=== PATIENT | male | born 1960 | race Caucasian/White ===

== ENCOUNTER 2016-10-27 23:34 | Emergency (ER) | payer OTHER, BC ==
[2016-10-28] MEDS ORDERED: LIDOCAINE 1% INJ-PF (10 MG/ML) 30 ML SDV INJ ONE (00:54)
--- NOTE | 2016-10-28 00:56 | RADIOLOGY REPORT (SQ) ---
EXAM DESCRIPTION: FINGER RIGHT COMPLETED DATE/TIME: 10/28/2016 12:38 am REASON FOR STUDY: crush injury . Transmission fell onto finger. 3rd digit laceration on the palmar side of the finger. COMPARISON: None. NUMBER OF VIEWS: Three views. TECHNIQUE: AP view of the right hand and lateral, and oblique images acquired of the right third fin padmini. LIMITATIONS: None. FINDINGS: MINERALIZATION: Normal. BONES: There is a linear lucency at the tuft of the 3rd distal phalanx on the oblique view. SOFT TISSUES: Diffuse soft tissue swelling and subcutaneous emphysema noted at the 3rd finger. No ra diopaque foreign body. IMPRESSION: Diffuse soft tissue swelling and subcutaneous emphysema at the right 3rd finger, suggest chris of an open wound. Linear lucency at the tuft of the 3rd distal phalanx, may represent artifact v ersus nondisplaced fracture. Please correlate with point tenderness. COMMENT: SITE OF TRAUMA/COMPLAINT MARKED/STAMP COMPLETED: YES. TECHNICAL DOCUMENTATION: JOB ID: [id number] 2010 [employer]- All Rights Reserved
[2016-10-28] MEDS ORDERED: CEPHALEXIN 500 MG CAPSULE PO ONE (02:27)
--- NOTE | 2016-10-28 02:30 | ER Document Report ---
ED Wound - General Chief Complaint: Laceration Stated Complaint: RIGHT INDEX FINGER LACERATION Time Seen by Provider: 10/28/16 00:08 Notes: Patient is a 55-year-old male presents to emergency room complaining of a laceration on the palmar aspect of his left hand on his third digit. States that he was working in a car when the transmission fell and crushed his finger. Patient admits to full range of motion and sensation. Able to make a fist and fully extend his finger. Tetanus is up-to-date as of 2014. Otherwise denies any other issues TRAVEL OUTSIDE OF THE [place] IN LAST 30 DAYS: No - Related Data Allergies/Adverse Reactions: No Known Allergies Allergy (Unverified 10/27/16 23:41) Past Medical History - Social History Smoking Status: Unknown if Ever Smoked Family History: Reviewed & Not Pertinent Patient has suicidal ideation: No Patient has homicidal ideation: No Renal/ Medical History: Denies: Hx Peritoneal Dialysis Past Surgical History: Reports: Hx Appendectomy Review of Systems - Review of Systems Constitutional: No symptoms reported Musculoskeletal: See HPI Skin: See HPI -: Yes All other systems reviewed and negative Physical Exam - Vital signs Vitals: Temp Pulse Resp BP Pulse Ox 97.9 F 108 H 16 154/99 H 96 10/27/16 23:38 10/27/16 23:38 10/27/16 23:38 10/27/16 23:38 10/27/16 23:38 - General General appearance: Appears well, Alert In distress: None - Cardiovascular Pulses: Normal: Radial Normal capillary refill: Yes - Extremities Hand: Normal, Nontender, Laceration, No evidence of FB, Swelling. No: Deformity , Dislocation, Nail injury, Tendon deficit - Neurological Sensory: Normal - Skin Skin Temperature: Warm Skin Moisture: Dry Skin Color: Normal Skin Turgor: Elastic Skin irregularity: Laceration Location of irregularity: Extremities Character of irregularity: Linear Irregularity with: Other - bleeding controlled. negative: Tenderness Course - Re-evaluation Re-evalutation: 10/28/16 06:37 No evidence of fracture on evaluation, no concern for tuft fracture given correlate clinically. Laceration closed with 6 5. 0 nylon sutures. Sterile dressing applied, patient educated on follow-up in 8-10 days to have sutures removed - Vital Signs Vital signs: Temp Pulse Resp BP Pulse Ox 97.9 F 84 18 148/86 H 95 10/27/16 23:38 10/28/16 02:40 10/28/16 02:40 10/28/16 02:40 10/28/16 02:40 - Diagnostic Test Radiology reviewed: Image reviewed, Reports reviewed Procedures - Laceration/Wound Repair Finger Wound length (cm): 4 Wound's Depth, Shape: Superficial, Linear Laceration pre-procedure: Sterile PPE donned, Betadine prep applied, Sterile drapes applied Anesthetic type: 1% Lidocaine Volume Anesthetic (mLs): 5 Wound explored: Clean, No foreign body removed Irrigated w/ Saline (mLs): 50 Wound Debrided: Minimal Wound Repaired With: Sutures Suture Size/Type: 5:0, Nylon Number of Sutures: 6 Layer Closure?: No Post-procedure wound care: Sterile dressing applied Post-procedure NV exam normal: Yes Complications: No Discharge - Discharge Clinical Impression: Laceration Condition: Good Disposition: HOME, SELF-CARE Instructions: Antibiotic Ointment Protection ([facility]), Laceration Care ([facility]), Prophylactic Antibiotic ([facility]), Soap Cleansing ([facility]), Use of Zehf-Ptu-Iozcqkn Ibuprofen ([facility]) Additional Instructions: Follow-up with your primary care provider in 8-10 days that your stitches removed Prescriptions: Cephalexin Monohydrate [Keflex 500 mg Capsule] 500 mg PO QID #20 capsule Forms: Elevated Blood Pressure, Return to Work
[2016-10-28 02:41] VITALS: BP 148/86
== END 2016-10-28 02:40 | disposition home or self-care (01) ==
LOC: ER 23:34
PROC: 0HQFXZZ Repair Right Hand Skin, External Approach (ICD-10-PCS; principal; 2016-10-27)
DX: S61.210A Laceration without foreign body of right index finger without damage to nail, initial encounter (principal); W24.1XXA Contact with transmission devices, not elsewhere classified, initial encounter
CPT/HCPCS: 99283; 73140; 12002; J3490

== ENCOUNTER → 2018-07-09 | Outpatient (CLI) | payer OTHER | LOC: OD 09:38 | PROVIDERS: ATTEND Orthopaedic Surgery Sports Medicine | DX: M79.674 Pain in right toe(s) (principal) | CPT/HCPCS: 36415; 84550 ==

== ENCOUNTER 2019-03-27 11:19 | Emergency (ER) | payer OTHER ==
--- NOTE | 2019-03-27 11:36 | ER Document Report ---
ED Medical Screen (RME) - General Chief Complaint: Back Pain Stated Complaint: LOWER BACK PAIN Time Seen by Provider: 03/27/19 11:29 Primary Care Provider: JOHN ASHLEY MD [Primary Care Provider] - Follow up as needed Mode of Arrival: Wheelchair Information source: Patient Notes: This 58-year-old male with no obvious past medical history presents emergency department with right flank pain that started 4 to 6 weeks ago. Reports he tried [id number]-zar-qduylpo aids, Motrin stretching working out the gym thinking maybe had strained something. The pain continued. He reports to the point until he has trouble driving or walking without being hunched over. Denies hematuria. Denies history of kidney stones. Denies fever vomiting diarrhea. Reports he is eating drinking voiding bowel movement without any problems. Right flank tender to palpate I have greeted and performed a rapid initial assessment of this patient. A comprehensive ED assessment and evaluation of the patient, analysis of test results and completion of the medical decision making process will be conducted by additional ED providers. Dictation of this chart was performed using voice recognition software; therefore, there may be some unintended grammatical errors. TRAVEL OUTSIDE OF THE [place] IN LAST 30 DAYS: No - Related Data Allergies/Adverse Reactions: No Known Allergies Allergy (Unverified 10/27/16 23:41) Past Medical History - Social History Chew tobacco use (# tins/day): No Frequency of alcohol use: Occasional Drug Abuse: None Renal/ Medical History: Denies: Hx Peritoneal Dialysis Past Surgical History: Reports: Hx Appendectomy Physical Exam - Vital signs Vitals: Temp Pulse Resp BP Pulse Ox 98.0 F 95 16 147/91 H 96 03/27/19 11:24 03/27/19 11:24 03/27/19 11:24 03/27/19 11:24 03/27/19 11:24 Course - Vital Signs Vital signs: Temp Pulse Resp BP Pulse Ox 98.0 F 95 16 147/91 H 96 03/27/19 11:24 03/27/19 11:24 03/27/19 11:24 03/27/19 11:24 03/27/19 11:24 Doctor's Discharge - Discharge Referrals: JOHN ASHLEY MD [Primary Care Provider] - Follow up as needed
--- NOTE | 2019-03-27 12:19 | RADIOLOGY REPORT (SQ) ---
EXAM DESCRIPTION: CT ABD/PELVIS NO ORAL OR IV COMPLETED DATE/TIME: 03/27/2019 12:06 pm REASON FOR STUDY: right flank pain COMPARISON: None. TECHNIQUE: CT scan of the abdomen and pelvis performed without intravenous or oral contrast. Images reviewed with lung, soft tissue, and bone windows. Reconstructed coronal and sagittal MPR images revi ewed. All images stored on PACS. All CT scanners at this facility use dose modulation, iterative reconstruction, and/or weight based d osing when appropriate to reduce radiation dose to as low as reasonably achievable (ALARA). [facility]: Dose Right [facility]: CareDose [facility]: Dose Right [facility]: Teradose 4D [facility]: Smart [employer] RADIATION DOSE: CT Rad equipment meets quality standard of care and radiation dose reduction techniq ues were employed. CTDIvol: 18.3 mGy. DLP: 1087 mGy-cm.mGy. LIMITATIONS: None. FINDINGS: LOWER CHEST: There is a 7 mm subpleural pulmonary nodule of the dependent left lung base. NON-CONTRASTED LIVER, SPLEEN, ADRENALS: Evaluation limited by lack of IV contrast. No identified sign ificant masses. PANCREAS: No masses. No peripancreatic inflammatory changes. GALLBLADDER: No identified stones by CT criteria. No inflammatory changes to suggest cholecystitis. RIGHT KIDNEY AND URETER: No suspicious masses. Assessment limited by lack of IV contrast. No signif icant calcifications. No hydronephrosis or hydroureter. LEFT KIDNEY AND URETER: No suspicious masses. Assessment limited by lack of IV contrast. No signifi cant calcifications. No hydronephrosis or hydroureter. AORTA AND RETROPERITONEUM: No aneurysm. No retroperitoneal masses or adenopathy. BOWEL AND PERITONEAL CAVITY: No obvious masses or inflammatory changes. No free fluid. APPENDIX: Surgically absent. PELVIS, BLADDER, AND ABDOMINAL WALL:No abnormal masses. No free fluid. Bladder normal. BONES: No significant findings. OTHER: No other significant finding. IMPRESSION: 1. No acute CT findings of the abdomen or pelvis to explain right-sided flank pain. No evidence of urinary tract calculus or hydronephrosis. 2. There is a 7 mm subpleural pulmonary nodule of the dependent left lung base. Recommend initial fo llow-up CT in 6 to 12 months to ensure stability. COMMENT: Quality ID # [id number]: Final reports with documentation of one or more dose reduction techniques (e.g., Automated exposure control, adjustment of the mA and/or kV according to patient size, use of iterative reconstruction technique) TECHNICAL DOCUMENTATION: JOB ID: [id number] [employer]- All Rights Reserved Reading location - IP/workstation name: [email or web address]
[2019-03-27 12:23] LABS: ABSOLUTE BASOPHILS # (AUTO) 0.1 10^3/uL (0.0-0.2); ABSOLUTE EOSINOPHILS # (AUTO) 0.3 10^3/uL (0.0-0.6); ABSOLUTE LYMPHOCYTES (AUTO) 2.3 10^3/uL (0.5-4.7); ABSOLUTE MONOCYTES (AUTO) 1.1 10^3/uL (0.1-1.4); ABSOLUTE NEUT (AUTO) 7.8 10^3/uL (1.7-8.2); BASOPHILS % (AUTO) 0.6 % (0-2); EOSINOPHILS % (AUTO) 2.6 % (0-6); HEMOGLOBIN 14.9 g/dL (13.5-17.0); LYMPHOCYTES % (AUTO) 20.1 % (13-45); MEAN CORPUSCULAR HEMOGLOBIN 31.4 pg (27.0-33.4); MEAN CORPUSCULAR HGB CONC 34.6 g/dL (32.0-36.0); MEAN CORPUSCULAR VOLUME 91 fl (80-97); MONOCYTES % (AUTO) 9.6 % (3-13); PLATELET COUNT 213 10^3/uL (150-450); RED BLOOD COUNT 4.74 10^6/uL (4.35-5.55); RED CELL DISTRIBUTION WIDTH 12.6 % (11.5-14.0); SEGMENTED NEUTROPHILS % (AUTO) 67.1 % (42-78); TOTAL CELLS COUNTED % (AUTO) 100 %; WHITE BLOOD COUNT 11.6 10^3/uL (4.0-10.5)
[2019-03-27 12:48] LABS: ALBUMIN 4.6 g/dL (3.5-5.0); ALKALINE PHOSPHATASE 76 U/L (38-126); ANION GAP 12 (5-19); ASPARTATE AMINO TRANSFERASE 33 U/L (17-59); BILIRUBIN,DIRECT 0.2 mg/dL (0.0-0.4); BILIRUBIN,TOTAL 0.5 mg/dL (0.2-1.3); BLOOD UREA NITROGEN 16 mg/dL (7-20); CALCIUM 9.6 mg/dL (8.4-10.2); CARBON DIOXIDE 24 mmol/L (22-30); CHLORIDE 102 mmol/L (98-107); GLUCOSE 96 mg/dL (75-110); POTASSIUM 4.7 mmol/L (3.6-5.0); TOTAL PROTEIN 7.6 g/dL (6.3-8.2)
[2019-03-27 12:54] LABS: APPEARANCE,URINE CLEAR; BILIRUBIN,URINE NEGATIVE (NEGATIVE); COLOR,URINE YELLOW; GLUCOSE, URINE NEGATIVE (NEGATIVE); KETONES,URINE NEGATIVE (NEGATIVE); LEUKOCYTE ESTERASE,URINE NEGATIVE (NEGATIVE); NITRITE,URINE NEGATIVE (NEGATIVE); PROTEIN,URINE NEGATIVE (NEGATIVE); URINE SPECIFIC GRAVITY 1.009; UROBILINOGEN,URINE NEGATIVE mg/dL (<2.0)
--- NOTE | 2019-03-27 16:02 | ER Document Report ---
ED General - General Chief Complaint: Back Pain Stated Complaint: LOWER BACK PAIN Time Seen by Provider: 03/27/19 11:29 Primary Care Provider: JOHN ASHLEY MD [NO LOCAL MD] - Follow up as needed Mode of Arrival: Wheelchair TRAVEL OUTSIDE OF THE [place] IN LAST 30 DAYS: No - HPI Notes: Patient presents with what he states 4 to 6 weeks of bilateral intermittent lower lumbar back pain. No recent traumas or falls to cause this. He has not picked up anything heavy that he is aware of. It is positional nature worse with twisting his back and movement. No recent fevers chills. No history of kidney stones and no dysuria. - Related Data Allergies/Adverse Reactions: No Known Allergies Allergy (Unverified 10/27/16 23:41) Past Medical History - General Information source: Patient - Social History Smoking Status: Never Smoker Chew tobacco use (# tins/day): No Frequency of alcohol use: Occasional Drug Abuse: None Family History: Reviewed & Not Pertinent Patient has suicidal ideation: No Patient has homicidal ideation: No - Past Medical History Cardiac Medical History: Reports: Hx Hypertension Renal/ Medical History: Denies: Hx Peritoneal Dialysis Past Surgical History: Reports: Hx Appendectomy, Hx Orthopedic Surgery - R thumb, R toe Review of Systems - Review of Systems Constitutional: No symptoms reported EENT: No symptoms reported Cardiovascular: No symptoms reported Respiratory: No symptoms reported Gastrointestinal: No symptoms reported Genitourinary: No symptoms reported Male Genitourinary: No symptoms reported Musculoskeletal: See HPI Skin: No symptoms reported Hematologic/Lymphatic: No symptoms reported Neurological/Psychological: No symptoms reported Physical Exam - Vital signs Vitals: Temp Pulse Resp BP Pulse Ox 98.0 F 95 16 147/91 H 96 03/27/19 11:24 03/27/19 11:24 03/27/19 11:24 03/27/19 11:24 03/27/19 11:24 - General General appearance: Appears well, Alert - HEENT Head: Normocephalic, Atraumatic - Respiratory Respiratory status: No respiratory distress Chest status: Nontender Breath sounds: Normal Chest palpation: Normal - Cardiovascular Rhythm: Regular Heart sounds: Normal auscultation Murmur: No - Abdominal Inspection: Normal Distension: No distension Bowel sounds: Normal Tenderness: Nontender - Back Back: Other - Tense bilateral paraspinal lumbar musculature. No: Vertebra tenderness - Neurological Neuro grossly intact: Yes Cognition: Normal Orientation: AAOx4 Course - Re-evaluation Re-evalutation: 03/27/19 16:00 Well-appearing able to stand up from chair. CT shows no acute abnormalities labs are unremarkable. Discussed as this is positional in nature not midline tenderness is consistent with muscular strain. Will provide Valium for spasms and as well as a 5-day steroid pack to see if this helps with the symptoms. - Vital Signs Vital signs: Temp Pulse Resp BP Pulse Ox 98.0 F 95 16 147/91 H 96 03/27/19 11:24 03/27/19 11:24 03/27/19 11:24 03/27/19 11:24 03/27/19 11:24 - Laboratory Result Diagrams: 03/27/19 11:49 03/27/19 11:49 Laboratory results interpreted by me: 03/27/19 11:49 WBC 11.6 H Discharge - Discharge Clinical Impression: Lumbar back pain Condition: Good Disposition: HOME, SELF-CARE Instructions: Low Back Pain ([facility]), Muscle Strain ([facility]), Warm Packs ([facility]), Ice Packs ([facility]) Prescriptions: Diazepam [Valium 5 mg Tablet] 5 mg PO QHS PRN #15 tablet PRN Reason: Prednisone [Deltasone 20 mg Tablet] 2 tab PO DAILY 5 Days #10 tablet Referrals: JOHN ASHLEY MD [NO LOCAL MD] - Follow up as needed
[2019-03-27 16:41] VITALS: BP 129/91
== END 2019-03-27 16:39 | disposition home or self-care (01) ==
LOC: ER 11:19
DX: M54.5 Low back pain (principal); R25.2 Cramp and spasm; I10 Essential (primary) hypertension
CPT/HCPCS: 36415; 74176; 80053; 81001; 85025; 99284

== ENCOUNTER 2020-01-14 05:59 | Emergency (ER) | payer OTHER ==
[2020-01-14] MEDS ORDERED: MORPHINE SULFATE 10 MG/ML INJ IV ONE ×2 (06:35→08:00)
[2020-01-14] MEDS ORDERED: ONDANSETRON HCL INJ/PF 4 MG/2 ML SDV IV ONE (06:35)
--- NOTE | 2020-01-14 06:43 | ER Document Report ---
ED General - General Chief Complaint: Foot Pain Stated Complaint: RIGHT FOOT PAIN Time Seen by Provider: 01/14/20 06:24 Primary Care Provider: [facility] [Primary Care Provider] - Follow up as needed TRAVEL OUTSIDE OF THE [place] IN LAST 30 DAYS: No - HPI Notes: Chief complaint: Pain right foot and pain left upper quadrant abdomen History of present illness: 59-year-old male followed by [facility] with history of hypertension and gout presents with pain and swelling right first MTP joint not associated with any known injury over the past 2 to 3 days. Over the past week patient is also had an increasing pain left upper quadrant abdomen. The patient reports a past history of gout. He is not currently on any treatment for this. Patient also stated that an orthopedist did some sort of a "cleanout procedure" of the right first MTP joint about 5 years ago. Patient is tried a variety of flfd-isv-fjndndc medications over the last several days with minimal improvement in his pain or swelling. Presently describes this is 8/10 intensity and says it radiates back to the posterior part of the foot and is aggravated with touching the area or walking. Over the last week the patient is also developed left upper and lower quadrant abdominal pain. Area is tender to touch and is aggravated by rolling over in bed. He initially thought he might have strained a muscle. He denies fever or chills. He denies nausea, vomiting, diarrhea or constipation. Eating and drinking normally and this does not affect his discomfort. He denies any known history of diverticulosis, renal stones or peptic ulcer disease. Pain is c urrently described as 8/10 intensity. He denies dysuria or hematuria. Patient's only current prescription medication is lisinopril for hypertension. - Related Data Allergies/Adverse Reactions: No Known Allergies Allergy (Unverified 10/27/16 23:41) Home Medications: lisinopril, valium, tylenol Past Medical History - General Information source: Patient, [facility] Records - Social History Smoking Status: Never Smoker Frequency of alcohol use: Social Drug Abuse: None Lives with: Family Family History: Reviewed & Not Pertinent Patient has homicidal ideation: No - Past Medical History Cardiac Medical History: Reports: Hx Hypertension Endocrine Medical History: Denies: Hx Diabetes Mellitus Type 1, Hx Diabetes Mellitus Type 2 Renal/ Medical History: Denies: Hx Kidney Stones, Hx Peritoneal Dialysis GI Medical History: Denies: Hx Diverticulitis, Hx Pancreatitis, Hx Ulcer Musculoskeletal Medical History: Reports Hx Gout Past Surgical History: Reports: Hx Appendectomy, Hx Orthopedic Surgery - R thumb, R toe Review of Systems - Review of Systems Notes: Constitutional: Negative for fever. HENT: Negative for sore throat. Eyes: Negative for visual changes. Cardiovascular: Negative for chest pain. Respiratory: Negative for shortness of breath. Gastrointestinal: As per HPI. Genitourinary: Negative for dysuria. Musculoskeletal: As per HPI. Skin: Negative for rash. Neurological: Negative for headaches, weakness or numbness. 10 point ROS negative except as marked above and in HPI. Physical Exam - Vital signs Vitals: Temp Pulse Resp BP Pulse Ox 98.4 F 91 16 162/93 H 95 01/14/20 06:06 01/14/20 06:06 01/14/20 06:06 01/14/20 06:06 01/14/20 06:06 Interpretation: Hypertensive - Notes Notes: GENERAL: Well-developed well-nourished male approximately stated age appearing in moderate discomfort. SKIN: Good turgor no rashes. HEAD: Normocephalic atraumatic. EYES: PERRLA. EOMI. Conjunctivae and sclerae clear. EARS: CANALS AND TMS CLEAR. NOSE: CLEAR. MOUTH: Moist mucosa. Good dentition. No stridor or edema. No drooling. NECK: Supple. No masses or thyromegaly. No adenopathy. Carotids 2+ without bruits. No JVD. BACK: Symmetrical without tenderness. CHEST: Respirations unlabored. Breath sounds clear and symmetrical. HEART: Regular rhythm. No murmur gallop or rub. ABDOMEN: Mildly obese. Exquisitely tender left upper and lower quadrant. Mild voluntary guarding without masses, organomegaly or rebound. Bowel sounds normally active. No bruits. GENITALIA: Deferred. EXTREMITIES: Patient has redness, swelling, warmth and tenderness over the right first MTP joint. No calf tenderness. Cap refill less than 1.5 seconds. Dorsalis pedis and posterior tibial pulses 3+ and symmetrical. NEUROLOGICAL: GCS 15. Alert and oriented x3. Fluent speech. Cranial nerves II through XII intact. Sensorimotor and cerebellar normal. Normal tone. PSYCHIATRIC: Appropriate affect. Course - Re-evaluation Re-evalutation: 01/14/20 11:14 This man presented with what appeared to be podegra of right foot. His serum urate is normal. X-ray is unremarkable. He has a markedly elevated sed rate. I think in all likelihood this is pseudogout (CPPD). He also was noted to have significant left upper and lower quadrant abdominal pain. He has minimal elevation of his white count. Urinalysis is unremarkable. His CT shows diverticulosis without diverticulitis. He also has evidence of extensive ischemia of the omentum in the left hemicolon. I discussed case with the on-call general surgeon, Dr. Renteria, who will see the patient for consultation at this time. Patient's prior history is basically remarkable only for hypertension and he is compliant with antihypertensive medication. I checked an EKG and he is in a sinus rhythm. He has a right bundle branch block present. There is no old tracing for comparison. His platelet count and hemoglobin are normal. I have requested 01/14/20 13:30 Dr. Renteria from surgery saw the patient and found that this man had had an extensive abdominal ultrasound exam a few days ago as an outpatient and he thinks this man has trauma to the abdominal wall resulting from the pressure of the probe. He does not feel there is any surgical issue and suggests management with analgesics and anti-inflammatory medications. Patient is given David wrap and crutches for his right foot which I think is probably pseudogout. Will place him on steroids NSAIDs and supplemental trama dol. He is to follow-up with his doctor at the [facility] this week. I suggested ice and elevation. I stressed to the patient the importance of returning here if he develops a fever, vomiting, chills, worsening abdominal pain or overall worsening or new symptoms. Findings, clinical impression and plan of treatment have been discussed with patient/family. Understanding of current findings and recommen dations has been acknowledged by them and there is agreement regarding disposition and follow-up. - Vital Signs Vital signs: Temp Pulse Resp BP Pulse Ox 98.4 F 91 16 162/93 H 95 01/14/20 06:06 01/14/20 06:06 01/14/20 06:06 01/14/20 06:06 01/14/20 06:06 - Laboratory Result Diagrams: 01/14/20 06:42 01/14/20 06:42 Laboratory results interpreted by me: 01/14/20 01/14/20 01/14/20 06:42 06:42 06:42 WBC 11.2 H RBC 4.24 L Hgb 13.4 L ESR 57 H Sodium 135.3 L Glucose 120 H - EKG Interpretation by Me Additional EKG results interpreted by me: 01/14/20 11:13 Twelve-lead EKG from 1050 hrs. reviewed contemporaneously by me demonstrating normal sinus rhythm with a rate of 84 and patient has a right bundle branch block with a QRS interval of 136 ms. QRS axis is -[address]/T wave changes present. No prior tracing for comparison. Impression right bundle branch block. Indication for current study: Upper abdominal pain. Procedures - Immobilization Right Foot Time completed: 13:30 Pre-Proc Neuro Vasc Exam: Normal Immobilizer type: David wrap, Crutches Performed by: PCT Discharge - Discharge Clinical Impression: abdominal pain Pseudogout of joint of foot Qualifiers: Laterality: right Qualified Code(s): M11.271 - Other chondrocalcinosis, right ankle and foot Condition: Stable Disposition: HOME, SELF-CARE Additional Instructions: PseudogoutPseudogout Your joint pain is due to pseudogout. This is a type of arthritis. It's caused by crystals of calcium pyrophosphate in the joint. Unlike true gout, the crystals are not uric acid. An attack of pseudogout may follow a minor injury, and most often involves the knee. Rest and elevate the affected limb until the swelling and pain are better. Colchicine, indomethacin, ibuprofen, and other antiinflammatory drugs can reduce symptoms fairly quickly. Cortisone medication may be taken as pills, or may be injected directly into the joint, for severe cases. Call the doctor or return if you develop increasing pain, severe swelling, fever or chills. Return here as needed for new or worsening symptoms: Pain that is worsening or unimproved Uncontrolled vomiting High fever or shaking chills Overall worsening Follow-up with your doctor at the [facility] later this week. Prescriptions: Prednisone [Deltasone 20 mg Tablet] 2 tab PO DAILY 5 Days tablet Indomethacin [Indocin 50 Mg Capsule] 50 mg PO TID 10 Days #30 capsule Oxycodone HCl/Acetaminophen [Percocet 5-325 mg Tablet] 1 - 2 tab PO Q4H PRN #15 tablet PRN Reason: Referrals: [facility] [Primary Care Provider] - Follow up as needed
[2020-01-14 06:55] LABS: ABSOLUTE BASOPHILS # (AUTO) 0.2 10^3/uL (0.0-0.2); ABSOLUTE EOSINOPHILS # (AUTO) 0.2 10^3/uL (0.0-0.6); ABSOLUTE LYMPHOCYTES (AUTO) 1.9 10^3/uL (0.5-4.7); ABSOLUTE MONOCYTES (AUTO) 1.2 10^3/uL (0.1-1.4); ABSOLUTE NEUT (AUTO) 7.8 10^3/uL (1.7-8.2); BASOPHILS % (AUTO) 1.4 % (0-2); EOSINOPHILS % (AUTO) 1.4 % (0-6); HEMATOCRIT 38.7 % (37.9-51.0); HEMOGLOBIN 13.4 g/dL (13.5-17.0); MEAN CORPUSCULAR HEMOGLOBIN 31.6 pg (27.0-33.4); MEAN CORPUSCULAR HGB CONC 34.6 g/dL (32.0-36.0); MEAN CORPUSCULAR VOLUME 91 fl (80-97); MONOCYTES % (AUTO) 10.7 % (3-13); PLATELET COUNT 201 10^3/uL (150-450); RED BLOOD COUNT 4.24 10^6/uL (4.35-5.55); RED CELL DISTRIBUTION WIDTH 13.1 % (11.5-14.0); SEGMENTED NEUTROPHILS % (AUTO) 69.5 % (42-78); TOTAL CELLS COUNTED % (AUTO) 100 %; WHITE BLOOD COUNT 11.2 10^3/uL (4.0-10.5)
[2020-01-14 07:16] LABS: ALBUMIN 4.2 g/dL (3.5-5.0); ALKALINE PHOSPHATASE 59 U/L (38-126); ANION GAP 11 (5-19); ASPARTATE AMINO TRANSFERASE 36 U/L (17-59); BILIRUBIN,TOTAL 0.7 mg/dL (0.2-1.3); BLOOD UREA NITROGEN 16 mg/dL (7-20); CALCIUM 9.5 mg/dL (8.4-10.2); CARBON DIOXIDE 24 mmol/L (22-30); CHLORIDE 100 mmol/L (98-107); GLUCOSE 120 mg/dL (75-110); TOTAL PROTEIN 7.3 g/dL (6.3-8.2)
[2020-01-14 07:17] LABS: URIC ACID 7.2 mg/dL (3.5-8.5)
[2020-01-14] MEDS ORDERED: NORMAL SALINE 1000 ML 1,000 ML IV ONE (07:21)
--- NOTE | 2020-01-14 07:28 | RADIOLOGY REPORT (SQ) ---
EXAM: X-ray foot three or more views, right CLINICAL DATA: 59-year-old male with pain in big toe and ankle area, no known injury TECHNICAL DATA: Three x-ray views of the right foot were performed on 01/14/2020 at 6:57 AM. COMPARISONS: None FINDINGS: There is no evidence of fracture or dislocation. There is no significant arthritis or degenerative change. No focal lytic or sclerotic bone lesions are seen. There is a posterior calcaneal enthesophyte. Bone mineralization is normal. No focal soft tissue abnormalities are identified. There is no evidence of subcutaneous emphysema. No radiopaque foreign bodies are identified. IMPRESSION: No evidence of acute osseous injury involving the right foot.
--- NOTE | 2020-01-14 09:44 | RADIOLOGY REPORT (SQ) ---
EXAM DESCRIPTION: CT ABD/PELVIS WITH IV ORAL IMAGES COMPLETED DATE/TIME: 01/14/2020 9:19 am REASON FOR STUDY: LUQ pain COMPARISON: CT of the abdomen and pelvis without contrast from 03/27/2019. TECHNIQUE: CT scan of the abdomen and pelvis performed using helical scanning technique with dynamic intravenous contrast injection. No oral contrast. Images reviewed with lung, soft tissue, and bone windows. Reconstructed coronal and sagittal MPR images reviewed. Delayed images for evaluation of the urinary system also acquired. All images stored on PACS. All CT scanners at this facility use dose modulation, iterative reconstruction, and/or weight based d osing when appropriate to reduce radiation dose to as low as reasonably achievable (ALARA). [facility]: Dose Right [facility]: CareDose [facility]: Dose Right [facility]: Teradose 4D [facility]: [employer] CONTRAST TYPE AND DOSE: Contrast/concentration: Isovue 350.00 mmol/ml; Total Contrast Delivered: 100 .0 ml; Total Saline Delivered: 64.9 ml RENAL FUNCTION: GFR > 60. RADIATION DOSE: CT Rad equipment meets quality standard of care and radiation dose reduction techniq ues were employed. CTDIvol: 18.7 - 20.7 mGy. DLP: 2365 mGy-cm. LIMITATIONS: None. FINDINGS: LOWER CHEST: No acute findings. LIVER: The morphology of the liver is noncirrhotic. The portal veins are patent. There is no hepati c mass. SPLEEN: No splenomegaly or splenic mass. PANCREAS: No acute gross abnormality of the pancreas. GALLBLADDER: No abnormality that is apparent on CT. ADRENAL GLANDS: Stable 10 x 9 mm left adrenal nodule (image 34 of series 3). RIGHT KIDNEY AND URETER: No solid mass, hydronephrosis, nephrolithiasis, hydroureter or ureterolithia sis. LEFT KIDNEY AND URETER: No solid mass, hydronephrosis, nephrolithiasis, hydroureter or ureterolithias is. AORTA AND VESSELS: No aneurysm of the abdominal aorta. RETROPERITONEUM: No retroperitoneal adenopathy, hemorrhage or mass. BOWEL AND PERITONEAL CAVITY: There is an ovoid fat attenuation structure on the anti mesenteric side of the descending colon (image 61 of series 3) that has an amorphous hyperdense rim and measures up t o 4 cm in transverse diameter. There is colonic diverticulosis without diverticulitis. There is no bowel obstruction, bowel wall thickening or pericolonic/ perienteric inflammation. There is no mesen teric adenopathy or free intraperitoneal fluid. APPENDIX: Unable to identify the appendix. There is no pericecal inflammation PELVIS: The prostate gland measures 4.7 cm in transverse diameter. The urinary bladder is normal in appearance. ABDOMINAL WALL: Fat containing right inguinal hernia. BONES: Degenerative spondylosis and facet arthropathy of the lumbar spine with mild levoconvex curvat ure. OTHER: No other finding. IMPRESSION: 1. Findings as detailed above concerning for an omental infarction on the anti mesenteri c side of the descending colon (image 61 of series 3). 2. Colonic diverticulosis without diverticulitis. 3. Other secondary findings as detailed above. TECHNICAL DOCUMENTATION: JOB ID: [id number] Quality ID # [id number]: Final reports with documentation of one or more dose reduction techniques (e.g., Au tomated exposure control, adjustment of the mA and/or kV according to patient size, use of iterative reconstruction technique) 2010 [employer]- All Rights Reserved Reading location - IP/workstation name: [email or web address]
[2020-01-14] MEDS ORDERED: HYDROMORPHONE HCL INJ/PF 2 MG/ML AMPULE IV ONE (10:45)
[2020-01-14 11:31] LABS: APPEARANCE,URINE CLEAR; BILIRUBIN,URINE NEGATIVE (NEGATIVE); COLOR,URINE STRAW; GLUCOSE, URINE NEGATIVE (NEGATIVE); KETONES,URINE NEGATIVE (NEGATIVE); PROTEIN,URINE NEGATIVE (NEGATIVE); URINE SPECIFIC GRAVITY 1.026; UROBILINOGEN,URINE NEGATIVE mg/dL (<2.0)
[2020-01-14 11:42] LABS: INTERNATIONAL RATION (INR) 1.01; PROTHROMBIN TIME 13.5 SEC (11.4-15.4)
[2020-01-14 11:43] LABS: PARTIAL THROMBOPLASTIN TIME 31.7 SEC (23.5-35.8)
[2020-01-14] MEDS ORDERED: COLCHICINE 0.6 MG TABLET PO ONE (11:52)
[2020-01-14] MEDS ORDERED: PREDNISONE 20 MG TABLET PO ONE (11:52)
[2020-01-14 14:19] VITALS: BP 148/82
--- NOTE | 2020-01-14 17:49 | PDOC CONSULTATION ---
Consultation Consult Date: 01/14/20 Provider Consulted: SAMMY THRASHER Consult reason:: Abdominal pains History of Present Illness Admission Date/PCP: [facility] History of Present Illness: MASSIMO STEARNS is a 59 year old male patient had an extensive ultrasound of the abdomen about a week ago. The next day patient complained of pains along the left lower quadrant which got worse over the weekend. However the past 2 to 3 days developed pains along the right big toe first MP joint and because of this he went to the ED. A CT scan of the abdomen was done because of the pains and noted to have omental infarct about 4 cm in diameter. Patient denies any fever chills nausea vomiting or diarrhea. Past Medical History Cardiac Medical History: Reports: Hypertension Endocrine Medical History: Denies: Diabetes Mellitus Type 1, Diabetes Mellitus Type 2 GI Medical History: Denies: Diverticulitis Musculoskeltal Medical History: Reports: Gout Past Surgical History Past Surgical History: Reports: Appendectomy, Orthopedic Surgery - R thumb, R toe Social History Lives with: Family Smoking Status: Never Smoker Family History Family History: Reviewed & Not Pertinent Parental Family History Reviewed: Yes Children Family History Reviewed: No Sibling(s) Family History Reviewed.: No Medication/Allergy Home Medications: Cephalexin Monohydrate [Keflex 500 mg Capsule] 500 mg PO QID #20 capsule 10/28/16 Diazepam [Valium 5 mg Tablet] 5 mg PO QHS PRN #15 tablet 03/27/19 Prednisone [Deltasone 20 mg Tablet] 2 tab PO DAILY 5 Days #10 tablet 03/27/19 Indomethacin [Indocin 50 Mg Capsule] 50 mg PO TID 10 Days #30 capsule 01/14/20 Oxycodone HCl/Acetaminophen [Percocet 5-325 mg Tablet] 1 - 2 tab PO Q4H PRN #15 tablet 01/14/20 Prednisone [Deltasone 20 mg Tablet] 2 tab PO DAILY 5 Days tablet 01/14/20 Allergies/Adverse Reactions: No Known Allergies Allergy (Unverified 10/27/16 23:41) Review of Systems Constitutional: PRESENT: as per HPI Gastrointestinal: PRESENT: abdominal pain - Almost like a point tenderness in the left lower quadrant. No definite herniation was noted. Musculoskeletal: PRESENT: joint swelling - First right metatarsophalangeal joint area with redness and tenderness Physical Exam Vital Signs: Temp Pulse Resp BP Pulse Ox 98.4 F 89 17 148/82 H 100 01/14/20 14:18 01/14/20 14:18 01/14/20 14:18 01/14/20 14:18 01/14/20 14:18 Intake & Output 01/13/20 01/14/20 01/15/20 06:59 06:59 06:59 Intake Total 1000 Balance 1000 Weight 119.748 kg Exam: Almost point tenderness in the left lower quadrant area about 1 inch in diameter. No definite bulging noted. Results Laboratory Results: 01/14/20 06:42 01/14/20 06:42 01/14/20 01/14/20 01/14/20 06:42 06:42 06:42 WBC 11.2 H RBC 4.24 L Hgb 13.4 L Hct 38.7 MCV 91 MCH 31.6 MCHC 34.6 RDW 13.1 Plt Count 201 Seg Neutrophils % 69.5 Sodium 135.3 L Potassium 5.0 Chloride 100 Carbon Dioxide 24 Anion Gap 11 BUN 16 Creatinine 0.90 Est GFR ( Amer) > 60 Glucose 120 H Uric Acid 7.2 Calcium 9.5 Total Bilirubin 0.7 AST 36 Alkaline Phosphatase 59 Total Protein 7.3 Albumin 4.2 Lipase 69.5 Urine Color Urine Appearance Urine pH Ur Specific Jackson Urine Protein Urine Glucose (UA) Urine Ketones Urine Blood Urine RBC (Auto) 01/14/20 10:52 WBC RBC Hgb Hct MCV MCH MCHC RDW Plt Count Seg Neutrophils % Sodium Potassium Chloride Carbon Dioxide Anion Gap BUN Creatinine Est GFR ( Amer) Glucose Uric Acid Calcium Total Bilirubin AST Alkaline Phosphatase Total Protein Albumin Lipase Urine Color STRAW Urine Appearance CLEAR Urine pH 5.0 Ur Specific Jackson 1.026 Urine Protein NEGATIVE Urine Glucose (UA) NEGATIVE Urine Ketones NEGATIVE Urine Blood NEGATIVE Urine RBC (Auto) 0 Impressions: Abdomen/Pelvis CT 01/14/20 00:00 IMPRESSION: 1. Findings as detailed above concerning for an omental infarction on the anti mesenteric side of the descending colon (image 61 of series 3). 2. Colonic diverticulosis without diverticulitis. 3. Other secondary findings as detailed above. Foot X-Ray 01/14/20 06:35 IMPRESSION: No evidence of acute osseous injury involving the right foot. Assessment & Plan - Diagnosis (1) Abdominal wall pain Is this a current diagnosis for this admission?: Yes - Time Time Spent: 30 to 50 Minutes - Plan Summary Plan Summary: 59-year-old male with known hypertension had an extensive ultrasound of the abdomen done about a week ago started complaining of a left lower quadrant pains the next day after the ultrasound. The pains somewhat got worse but then developed more severe pains in the right first metatarsophalangeal joint area 2 to 3 days ago. This brought him to the hospital. Denies any fever chills nausea vomiting or diarrhea. CT scan of the abdomen was done that showed possible small area of omental infarction right at the mid transverse colon area. On examination patient is tender in the left lower quadrant area about an inch in diameter. No definite bulging was noted. Patient has an obvious swelling of the right first metatarsophalangeal joint area likely due to gouty arthritis. Impression is abdominal pains likely due to the trauma post extensive ultrasound of the abdominal wall. The incidental finding of omental infarction showed no c linical symptoms related to this. Therefore, no surgical indication is indicated for this infarction. Recommendations: I have discussed the case with the ER physician and mentioned that patient does not have any surgical abdomen at this time. Also, mentioned that the patient should come back if there is any increasing pains, fever, chills, nausea vomiting diarrhea or constipation. I also discussed this with the patient.
--- NOTE | 2020-01-14 19:37 | EKG REPORT ---
SEVERITY:- ABNORMAL ECG - SINUS RHYTHM RIGHT BUNDLE BRANCH BLOCK : Confirmed by: Luly Church 14-Jan-2020 19:36:52
== END 2020-01-14 14:19 | disposition home or self-care (01) ==
LOC: ER 05:59
DX: M11.271 Other chondrocalcinosis, right ankle and foot (principal); K55.1 Chronic vascular disorders of intestine; R10.12 Left upper quadrant pain; R10.32 Left lower quadrant pain; R10.812 Left upper quadrant abdominal tenderness; R10.814 Left lower quadrant abdominal tenderness; K57.30 Diverticulosis of large intestine without perforation or abscess without bleeding; I10 Essential (primary) hypertension; D72.829 Elevated white blood cell count, unspecified; Z79.899 Other long term (current) drug therapy; Z90.49 Acquired absence of other specified parts of digestive tract; I45.10 Unspecified right bundle-branch block
CPT/HCPCS: 93005; 96376; 99284; 96361; 96374; 96375; 36415; 83690; 84550; 85025; 85652; 85610; 85730; 80053; 81001; 73630; 74177; 93010; J2270; J1170; J7512; J2405; J7030

== ENCOUNTER → 2020-02-12 | Outpatient (CLI) | payer OTHER ==
[2020-02-12 10:08] VITALS: BP 160/97
--- NOTE | 2020-02-12 10:08 | ER RDC ASSESSMENT REPORT ---
Intake - In the Last 14 days Have you traveled outside [place]?: No Have you been in close contact with someone CONFIRMED: No Worked in Healthcare?: No - Symptoms Subjective Fever([place] feverish): No Chills: No Muscule Aches: No Runny Nose: No Sore Throat: No Cough (New or worsening chronic cough): No Shortness of breath: No Nausea or Vomiting: No Headache: No Abdominal Pain: No Diarrhea(3 or more loose stools in last 24 hours): No - Do you have any of the following Chronic lung disease: Asthma or emphysema or COPD: No Cystic Fibrosis: No Diabetes: No High Blood Pressure: Yes Cardiovascular Disease: No Chronic Kidney Disease: No Chronic Liver Disease: No Chronic blood disorder like Sickle Cell Disease: No Weak immune system due to disease or medication: No Neurologic condition that limits movement: No Developmental delay - Moderate to Severe: No Morbid Obesity (>100 pounds over ideal weight): No - Objective Temperature: 97.8 F Pulse Rate: 80 Respiratory Rate: 18 Blood Pressure: 160/97 O2 Sat by Pulse Oximetry: 96 Objective: Given above, testing performed: covid Disposition: Home; Selfcare General - General Stated Complaint: covid screen Time Seen by Provider: 02/12/20 09:45 Mode of Arrival: Ambulatory Information source: Patient - HPI Notes: Patient presents to clinic for COVID-19 testing for routine screening. Patient is asymptomatic. Denies any contact with known positive coronavirus patient. They deny any cough, shortness of breath, fever, chills, muscle aches, rhinorrhea, sore throat, nausea or vomiting, headache, abdominal pain or diarrhea. Patient has no acute medical concerns. - Related Data Allergies/Adverse Reactions: No Known Allergies Allergy (Unverified 10/27/16 23:41) Past Medical History - General Information source: Patient - Social History Smoking Status: Never Smoker Family History: Reviewed & Not Pertinent - Past Medical History Cardiac Medical History: Reports: Hx Hypertension Pulmonary Medical History: Reports: None EENT Medical History: Reports: None Neurological Medical History: Reports: None Endocrine Medical History: Reports: None. Denies: Hx Diabetes Mellitus Type 1, Hx Diabetes Mellitus Type 2 Renal/ Medical History: Reports: None. Denies: Hx Kidney Stones, Hx Peritoneal Dialysis Malignancy Medical History: Reports None GI Medical History: Reports: None. Denies: Hx Diverticulitis, Hx Pancreatitis, Hx Ulcer Musculoskeletal Medical History: Reports Hx Gout Skin Medical History: Reports None Psychiatric Medical History: Reports: None Traumatic Medical History: Reports: None Infectious Medical History: Reports: None Past Surgical History: Reports: Hx Appendectomy, Hx Orthopedic Surgery - R thumb, R toe Physical Exam - General General appearance: Appears well, Alert In distress: None Notes: PHYSICAL EXAMINATION: GENERAL: Well-appearing and in no acute distress. HEAD: Atraumatic, normocephalic. EYES: sclera anicteric, conjunctiva are normal. ENT: nares patent. Moist mucous membranes. NECK: Normal range of motion, supple without lymphadenopathy. LUNGS: No increased work of breathing. Lung sounds CTAB and equal. No wheezes rales or rhonchi. HEART: Regular rate and rhythm without murmurs. ABDOMEN: Soft, nontender, normal bowel sounds, no guarding. EXTREMITIES: Normal range of motion, no pitting edema. No cyanosis. NEUROLOGICAL: A&O x 3. Normal speech. PSYCH: Normal mood, normal affect. SKIN: Warm, Dry, normal turgor, no rashes or lesions noted Patient Education/Counseling Counseling/Education: Patient presents for COVID 19 testing. Patient is asymptomatic at this time. Patient does not have emergency worrying symptoms such as difficulty breathing, shortness of breath, chest pain, pressure, confusion or cyanosis. Patient appears suitable for discharge as vital signs are stable and patient is nontoxic in appearance. Good return precautions have been discussed with patient, patient verbalized understanding and is agreeable with discharge plan of care at this time. Guidance for worsening S/SX: As a person under investigation for Covid 19, the [place] department of Health and Human Services, division of public health advises you to adhere to the following guidance until your test results are reported to you. If your test result is positive, you will receive additional information from your provider and your local health department at that time. Remain at home until you are cleared by the health provider or public health authorities. Keep a log of visitors to your home, notify any visitors to your home of your isolation status. If you plan to move to a new address or leave the county, notify the local health department in your County. Call your doctor or seek care if you have an urgent medical need. Before see [facility], call ahead to get instructions from the provider before arriving at the medical office clinic or hospital. Notify them that you are being tested for the virus that causes Covid 19 so that arrangements can be made, as necessary, to prevent transmission to others in the healthcare setting. Next, notify the local health department in your county. If a medical emergency arises and you need to call 911, inform the first responders that you are being tested for the virus that causes Covid 19. Next, notify the local health department in your county. RDC Discharge - Discharge Clinical Impression: Encounter for screening laboratory testing for COVID-19 virus in asymptomatic patient Condition: Good Disposition: Home; Selfcare
== END ==
LOC: RDC 09:08
PROVIDERS: ATTEND Registered Nurse
DX: Z03.818 Encounter for observation for suspected exposure to other biological agents ruled out (principal); I10 Essential (primary) hypertension; M10.9 Gout, unspecified
CPT/HCPCS: 87635; 99201; 99211; C9803